=== PATIENT | female | born 1970 ===

== ENCOUNTER → 2017-02-26 | Outpatient (CLI) | payer OTHER ==
--- NOTE | 2017-02-28 10:22 | Diagnostic Imaging Report ---
INDICATION: Undergoing anatomical evaluation. TECHNIQUE: Multiple real-time grayscale images were obtained in the gravid uterus. COMPARISON: None FINDINGS: Is presence of a single viable intrauterine , predominantly in transverse presentation with some movement. Normal amount of amniotic fluid appears be present. Placenta is anterior without evidence for previa. anatomical valuation appearing unremarkable. Biometrical measurements are as follows: Biparietal 5.05 cm, age 21 weeks 3 days. Head circumference 18.35 cm, age 20 weeks 6 days. Abdominal circumference 68980 cm, age 21 weeks 5 days. Femur length 3.4 cm, age 20 weeks 5 days. Sonographic estimate age: 21 weeks 2 days. Sonographic estimated date of delivery: 05/30/2017. Estimated Weight: 403 gm (+/- 59 gm). LMP percentile: 37 heart rate: 160 beats per minute. Cervical length: 4.1 cm. IMPRESSION: Single intrauterine in the verbal but predominantly transverse presentation. Sonographic estimated age of 21 weeks 2 days for an estimated date of delivery of May 30, 2017. Dictated by: Dictated on workstation # [id number]
== END | disposition home or self-care (01) ==
LOC: SLEEP 14:49

== ENCOUNTER → 2017-02-28 | Outpatient (CLI) | payer OTHER | END | disposition home or self-care (01) | LOC: SLEEP 13:58 ==

== ENCOUNTER → 2020-11-29 | Outpatient (CLI) | payer OTHER | LOC: RAD FS 08:14 | DX: Z53.9 Procedure and treatment not carried out, unspecified reason (principal) ==